=== PATIENT | male | born 1965 | race Caucasian/White ===

== ENCOUNTER 2016-12-18 05:36 | Day surgery (SDC) | payer OTHER ==
[2016-12-18 06:24] VITALS: PULSE 63
[2016-12-18] MEDS ORDERED: ceFAZolin 2 GM/DEXTROSE 100 ML IV ONE (06:35)
[2016-12-18] MEDS ORDERED: LR 1,000 ML IV ONE (06:37)
[2016-12-18] MEDS ORDERED: MIDAZOLAM 2 MG/2 ML VIAL IVP ONE (06:52)
--- NOTE | 2016-12-18 06:56 | PDANEPAE ---
ANE History of Present Illness ventral hernia s/p colosotomy and take down ANE Past Medical History - Cardiovascular History Hx Hypertension: Yes Hx Arrhythmias: No Hx Chest Pain: No Hx Coronary Artery / Peripheral Vascular Disease: No Hx CHF / Valvular Disease: No Hx Palpitations: No - Pulmonary History Hx COPD: No Hx Asthma/Reactive Airway Disease: Yes Hx Recent Upper Respiratory Infection: No Hx Oxygen in Use at Home: No Hx Sleep Apnea: No Sleep Apnea Screening Result - Last Documented: Positive Pulmonary History Comment: CHILDHOOD ASTHMA - Neurologic History Hx Cerebrovascular Accident: No Hx Seizures: No Hx Dementia: No - Endocrine History Hx Diabetes: No Endocrine History Comment: BLOOD SUGARS RUN HIGH RESULT OF HIV RX. 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 INTERMITTENT HEARTBURN WILL USE OCCASIONAL RX - Other Health History Other Health History: HIV POSITIVE - DX . very stable on meds - Chronic Pain History Chronic Pain: No - Surgical History Prior Surgeries: SIGMOID RESECTION/COLOSTOMY 06/2015. ORIF RT 2011 ANE Review of Systems Review of Systems: - Exercise capacity METS (RN): 4 METS ANE Patient History - Allergies Allergies/Adverse Reactions: HAYFEVER Allergy (Mild, Uncoded 07/11/15 12:34) STUFFY NOSE - Home Medications Home medications: home medication list seen and reviewed Home Medications: Albuterol Sulfate [PROVENTIL HFA] 1 - 2 puffs IH DAILY PRN 07/11/15 [Last Taken 07/10/15] Cholecalciferol Vit D3 [Vitamin D3 2000 units] 4,000 units PO DAILY 07/11/15 [ Last Taken 07/07/15] Efavirenz/Emtricitab/Tenofovir [Atripla Tablet] 1 each PO HS 07/11/15 [Last Taken 12/17/16 20:30] Lisinopril [Zestril 20 mg (*)] 20 mg PO DAILY 07/11/15 [Last Taken 12/17/16 20: 30] Multivitamins [Multivitamin (*)] 1 each PO DAILY 07/11/15 [Last Taken 12/15/16] Pravastatin Sodium 20 mg PO DAILY 07/11/15 [Last Taken 12/17/16] Tetrahydrozoline HCl/Zn Sulf [Visine Allergy Relief Drop] 1 drop OP DAILY PRN [Last Taken Unknown] - NPO status NPO Since - Liquids (Date): 12/17/16 NPO Since - Liquids (Time): 21:30 NPO Since - Solids (Date): 12/17/16 NPO Since - Solids (Time): 18:00 - Anes Hx Anes Hx: no prior problems - Smoking Hx Smoking Status: Current some day smoker - Alcohol Use Alcohol Use: Occasionally - Family Anes Hx Family Hx Anesthesia Complications: NEG ANE Labs/Vital Signs - Labs - CBC WBC: all labs reviewed and okay. LFT's stable - Vital Signs Blood Pressure: 124/83 Heart Rate: 63 Respiratory Rate: 16 O2 Sat (%): 94 Height: 186.69 cm Weight: 99.79 kg ANE Physical Exam - Airway Neck exam: FROM Mallampati Score: Class 2 Mouth exam: normal dental/mouth exam - Pulmonary Pulmonary: no respiratory distress - Cardiovascular Cardiovascular: regular rate and rhythym - ASA Status ASA Status: II (previous ez intubation) ANE Anesthesia Plan Anesthesia Plan: general endotracheal anesthesia (R/B/A explained and pt. agrees to proceed.)
[2016-12-18] MEDS ORDERED: BUPIVACAINE 0.5% 30 ML SDV ONE (07:04)
--- NOTE | 2016-12-18 07:05 | PDGENHP ---
History & Physical Chief Complaint: screening colon History of Present Illness: h/o diverticulitis with fistula requirng resection Pertinent Past, Social, Family History: no fam h/o colon cancer or polyps Relevant Physical Exam: CV rrr s1s2 nl. chect cta. abd + bs soft Cardiorespiratory Assessment: 11
--- NOTE | 2016-12-18 07:15 | PDHPUP ---
History & Physical Update H&P update statement: This history and physical update is based on an assessment of the patient which was completed after admission or registration (within 24 hours), but prior to the surgery/procedure. H&P update: H&P reviewed & patient examined, no change in patient's condition since H&P completed
[2016-12-18] MEDS ORDERED: fentaNYL 100 MCG/2 ML INJ ONE ×2 (07:18→09:05)
[2016-12-18] MEDS ORDERED: ROCURONIUM 50 MG/5 ML VIAL ONE ×2 (07:19→08:07)
[2016-12-18] MEDS ORDERED: DEXAMETHASONE 4 MG/ML VIAL ONE ×2 (07:19)
[2016-12-18] MEDS ORDERED: LIDOCAINE 2% 100 MG/5 ML SYR ONE (07:19)
[2016-12-18] MEDS ORDERED: ONDANSETRON 4 MG/2 ML VIAL ONE (07:19)
[2016-12-18] MEDS ORDERED: PROPOFOL/EMULSION 500 MG/50 ML BOTTLE IV ONE (07:19)
[2016-12-18] MEDS ORDERED: LIDOCAINE HCL 160 MG/4 ML LTA KIT TP ONE (07:20)
--- NOTE | 2016-12-18 08:10 | GIREPORT ---
[facility] Surgical Services - Endoscopy Department Patient Name: Edward Fry Procedure Date: 12/18/2016 7:29 AM Patient Type: Outpatient Attending MD/ ER Physician: Janae Rodriguez MD Procedure: Colonoscopy Indications: Screening for colorectal malignant neoplasm, coloncsopy do in coordinat ion with ventral hernia repair while patient is under genral anesthesia. (Incidentally pt has h/o complex diverticulitis with fistula requiring surgery 2015) Providers: Janae Rodriguez MD Medicines: General Anesthesia Complications: No immediate complications. Description of Procedure: After obtaining informed consent, the scope was passed under direct vision. Throughout the proce dure, the patient's blood pressure, pulse, and oxygen saturations were monitored continuously. The Colonoscope with irrigation channel was introduced through the anus and advanced to the cecum, identified by appendiceal orifice and ileocecal valve. The colonoscopy was performed without difficulty. The patient tolerated the procedure well. The quality of the bowel preparation was p oor. The ileocecal valve, appendiceal orifice, and rectum were photographed. Findings: The perianal and digital rectal examinations were normal. Multiple diverticula were found in the entire colon. There was evidence of a prior end-to-side colo-colonic anastomosis in the sigmoid colon. This wa s patent and was characterized by friable mucosa and inflammation. The anastomosis was traversed. Biopsies were taken with a cold forceps for histology. Estimated blood loss was minimal. A 14 mm polyp was found in the cecum. The polyp was sessile. The polyp was removed with a piecem eal technique using a cold snare. Resection and retrieval were complete. Estimated blood loss was mi nimal. Three sessile polyps were found in the ascending colon. The polyps were 4 to 10 mm in size. Thes e polyps were removed with a cold snare. Resection and retrieval were complete. Estimated blood lo ss was minimal. Estimated Blood Loss: Estimated blood loss was minimal. Post Op Diagnosis: - Preparation of the colon was poor. - Diverticulosis in the entire examined colon. - Patent end-to-side colo-colonic anastomosis, characterized by friable mucosa and inflammation. Biopsied. - One 14 mm polyp in the cecum, removed piecemeal using a cold snare. Resected and retrieved. - Three 4 to 10 mm polyps in the ascending colon, removed with a cold snare. Resected and retrie tiana. Recommendation: - Await pathology results. - Repeat colonoscopy in 1 year for surveillance after piecemeal polypectomy and poor prep. - Recommedn split prep wiuth 1 bottle of mag citrate with next colon. - Return patient to have hernia repair and disposition per Dr. Gaffney. Attending Participation: I personally performed the entire procedure. Janae Rodriguez MD Janae Rodriguez MD 12/18/2016 8:09:45 AM Number of Addenda: 0 Note Initiated On: 12/18/2016 7:29 AM Total Procedure Duration Time 0 hours 17 minutes 28 seconds [email or web address]
[2016-12-18] MEDS ORDERED: DEXAMETHASONE 4 MG/ML VIAL IVP PRN (08:32)
[2016-12-18] MEDS ORDERED: LABETALOL HCL 50 MG/10 ML SYR IVP PRN (08:32)
[2016-12-18] MEDS ORDERED: ACETAMINOPHEN 500 MG TAB PO PRN (08:32)
[2016-12-18] MEDS ORDERED: PROMETHAZINE HCL 25 MG/ML INJ IVP PRN (08:32)
[2016-12-18] MEDS ORDERED: NALOXONE HCL 0.4 MG/ML INJ IVP PRN (08:32)
[2016-12-18] MEDS ORDERED: LR 500 ML IV PRN (08:32)
[2016-12-18] MEDS ORDERED: METOCLOPRAMIDE 10 MG/2 ML VIAL IVP PRN (08:32)
[2016-12-18] MEDS ORDERED: HYDROCODONE/APAP 5/325 TAB PO PRN (08:32)
[2016-12-18] MEDS ORDERED: ALBUTEROL 3 ML DEYVIAL IH PRN (08:32)
[2016-12-18] MEDS ORDERED: MEPERIDINE 25 MG/ML SYR IVP PRN (08:32)
[2016-12-18] MEDS ORDERED: ONDANSETRON 4 MG/2 ML VIAL IVP PRN (08:32)
[2016-12-18] MEDS ORDERED: OXYCODONE/APAP 5/325 TAB PO PRN (08:32)
[2016-12-18] MEDS ORDERED: SUGAMMADEX SODIUM 200 MG/2 ML VIAL IVP ONE (08:49)
--- NOTE | 2016-12-18 08:54 | POSTOPPROG ---
Post Op Note Date of Operation: 12/18/16 Surgeon: Arianna Gaffney Elderly Companion: Isatu Anesthesiologist: José Miguel Anesthesia: GET(General Endotracheal) Pre-op Diagnosis: ventral hernia Post-op Diagnosis: same Indication: 51 year old with ventral hernia at ostomy take down site Procedure: open ventral hernia with mesh Findings: 4x4cm hernia Inf/Abcess present in the surg proc area at time of surgery?: No EBL: Minimal Specimen(s): none
[2016-12-18] MEDS: fentaNYL 100 MCG/2 ML INJ IVP PRN ×2 (09:10→09:15)
--- NOTE | 2016-12-18 09:28 | GOP ---
[f rep st] OPERATIVE REPORT DATE OF OPERATION: 12/18/2016 SURGEON: Arianna Gaffney MD RD LAB TECHNICIAN: Jessica Lunsford, JANNETH ANESTHESIA: General. ANESTHESIOLOGIST: Joshua Valdez MD PREOPERATIVE DIAGNOSIS: Ventral hernia. POSTOPERATIVE DIAGNOSIS: Ventral hernia. PROCEDURE PERFORMED: Open ventral hernia repair with mesh. FINDINGS: 4 x 4 cm hernia. SPECIMENS: None. ESTIMATED BLOOD LOSS: 10 cc. INDICATIONS: Edward Fry is a 51-year-old man status post colostomy takedown. He developed a hernia at the colostomy takedown site. DESCRIPTION OF PROCEDURE: The patient was brought into the operating room, and general anesthesia was administered. He first had a colonoscopy with Dr. Rodriguez. When this was completed, he was placed supine on the operative table. His abdomen was prepped and draped in the usual sterile fashion. I made an ellipse around his old ostomy scar. I dissected carefully down, as I knew there was very little tissue between the skin and the fascia. I identified a breach, and I opened this up fully to expose the fascial layer. It measured approximately 4 x 4 cm. I selected a piece of composite mesh, placed this intraabdominal, and sutured it in place with 0 Surgilon. The mesh was 9 x 9 cm. I then closed the fascia with 0 PDS. I closed the deep layer of tissue with 2-0 Vicryl. Skin was closed with 3-0 Vicryl followed by 4-0 Monocryl. Mastisol, Steri-Strips, and sterile dressing were applied. He was awakened in the operating room, extubated, and transferred to PACU in stable condition. /[id number]/MODL MTDD
--- NOTE | 2016-12-18 09:46 | POSTANESTH ---
Post Anesthetic Evaluation Cardiovascular Status: Normal, Stable Respiratory Status: Normal, Stable Level of Consciousness/Mental Status: Can Participate in Eval Pain Control: Adequate, Prn Tx Ordered Nausea/Vomiting Control: Adequate, Prn Tx Ordered Complications Possibly Related to Anesthesia: None Noted
[2016-12-18 09:47] VITALS: BP 119/81; RESP 13
[2016-12-18 09:55] VITALS: TEMP 97.5
[2016-12-18 09:56] VITALS: O2SAT 94
== END 2016-12-18 10:50 | disposition home or self-care (01) ==
LOC: FSGY 05:36
PROVIDERS: ATTEND Surgery
PROC: 0WUF0JZ Supplement Abdominal Wall with Synthetic Substitute, Open Approach (ICD-10-PCS; principal; 2016-12-18 07:15)
PROC: 0DBH8ZX Excision of Cecum, Via Natural or Artificial Opening Endoscopic, Diagnostic (ICD-10-PCS; principal; 2016-12-18 07:15)
PROC: 0DBK8ZX Excision of Ascending Colon, Via Natural or Artificial Opening Endoscopic, Diagnostic (ICD-10-PCS; principal; 2016-12-18 07:15)
PROC: 0DBN8ZX Excision of Sigmoid Colon, Via Natural or Artificial Opening Endoscopic, Diagnostic (ICD-10-PCS; principal; 2016-12-18 07:15)
DX: K43.9 Ventral hernia without obstruction or gangrene (principal); D12.0 Benign neoplasm of cecum; D12.2 Benign neoplasm of ascending colon; I10 Essential (primary) hypertension; J45.909 Unspecified asthma, uncomplicated
CPT/HCPCS: C1781; J0690; J1100; J2001; J2250; J2405; J2704; J3010

== ENCOUNTER → 2017-02-17 | Outpatient (CLI) | payer OTHER | LOC: FIMAGING 07:28 | PROVIDERS: ATTEND Nurse Practitioner | DX: K43.9 Ventral hernia without obstruction or gangrene (principal); N28.1 Cyst of kidney, acquired; K80.20 Calculus of gallbladder without cholecystitis without obstruction; R16.0 Hepatomegaly, not elsewhere classified; K76.0 Fatty (change of) liver, not elsewhere classified; R16.1 Splenomegaly, not elsewhere classified ==

== ENCOUNTER 2017-03-12 05:25 | Day surgery (SDC) | payer OTHER ==
--- NOTE | 2017-03-10 10:50 | GHP ---
[f rep st] PREOP HISTORY AND PHYSICAL DATE OF ADMISSION: 03/12/2017 CHIEF COMPLAINT: Right inguinal and ventral hernia. HISTORY OF PRESENT ILLNESS: The patient is a 51-year-old man who had a colovesical fistula. He had takedown of Karin's with anastomosis on December 20, 2015. I then performed an incisional ventra l hernia repair at the site of the ostomy takedown November 2016. Some point after that, he develop ed a bulge in his right groin and also tearing and discomfort in the right abdomen and showing a george ia by the midline. He presents to discuss repair. PAST MEDICAL HISTORY: Asthma, diabetes type 2, HIV, hypertension, hyperlipidemia. PAST SURGICAL HISTORY: As above. An open reduction internal fixation of the right 4th metacarpal. ALLERGIES: No known drug allergies. FAMILY MEDICAL HISTORY: Significant for breast cancer in his mother, alcoholism in his father, along with a stroke and hypertension, pacemaker, and pancreatitis. SOCIAL HISTORY: He drinks approximately 5 drinks per week. He does use tobacco products. 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 REVIEW OF SYSTEMS: 10-point review of systems negative. PHYSICAL EXAMINATION: GENERAL: Pleasant, well-nourished, well-groomed man. HEENT: Normocephalic. No gross hearing deficits. Mucous membranes moist. Pupils equal and round. No scleral icterus. L UNGS: Clear to auscultation bilaterally. No increased work of breathing. CARDIAC: Regular rate. No peripheral edema. ABDOMEN: Bowel sounds are present. He has no hernia on the left side. He peraza s have a right inguinal hernia and a ventral hernia on the right lower abdomen. SKIN: Warm and dry. MUSCULOSKELETAL: Normal gait, normal nails. PSYCH: Mood and affect normal. NEURO: Grossly inta ct. IMPRESSION AND PLAN: 51-year-old man with right inguinal hernia and incisional hernia. Due to his w ork requirements and having 2 hernias, I would like to attempt a robotic repair of both of these george ias. He also understands there may be a possibility he would need an open repair. The risks and brando efits, including, but not limited to, stroke, heart attack, , blood clots, infection, bleeding w ere discussed. He understands that he will be under lifting restrictions postoperatively. /[id number]/MODL
[2017-03-12] MEDS ORDERED: ceFAZolin 2 GM/SWFI 2 GM/20 ML SYR IVP ONE (05:48)
[2017-03-12] MEDS ORDERED: LIDOCAINE 1% 2 ML INJ ID PRN (05:48)
[2017-03-12] MEDS ORDERED: LR 1,000 ML IV ONE (05:48)
[2017-03-12 06:08] VITALS: PULSE 72
[2017-03-12] MEDS ORDERED: MIDAZOLAM 2 MG/2 ML VIAL IVP ONE (06:56)
--- NOTE | 2017-03-12 07:00 | PDANEPAE ---
ANE History of Present Illness DaVinci assist ventral hernia repair ANE Past Medical History - Cardiovascular History Hx Hypertension: Yes Hx Arrhythmias: No Hx Chest Pain: No Hx Coronary Artery / Peripheral Vascular Disease: No Hx CHF / Valvular Disease: No Hx Palpitations: No - Pulmonary History Hx COPD: No Hx Asthma/Reactive Airway Disease: Yes Hx Recent Upper Respiratory Infection: No Hx Oxygen in Use at Home: No Hx Sleep Apnea: No Sleep Apnea Screening Result - Last Documented: Positive Pulmonary History Comment: CHILDHOOD ASTHMA. ALLERGIC TRIGGERS - Neurologic History Hx Cerebrovascular Accident: No Hx Seizures: No Hx Dementia: No - Endocrine History Hx Diabetes: No Endocrine History Comment: BLOOD SUGARS RUN HIGH RESULT OF HIV RX. CHECK OWN OCCASIONALLY HAVE BEEN OK. 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 INTERMITTENT HEARTBURN WILL USE OCCASIONAL RX - Other Health History Other Health History: HIV POSITIVE - DX . very stable on meds - Chronic Pain History Chronic Pain: No - Surgical History Prior Surgeries: HERNIA REPAIR. TAKEDOWN. SIGMOID RESECTION/COLOSTOMY 06/2015. ORIF RT 2011 ANE Review of Systems Review of systems is: negative Review of Systems: - Exercise capacity Exercise capacity: >=4 METS METS (RN): 4 METS ANE Patient History - Allergies Allergies/Adverse Reactions: HAYFEVER Allergy (Mild, Uncoded 07/11/15 12:34) STUFFY NOSE - Home Medications Home medications: home medication list seen and reviewed Home Medications: Albuterol Sulfate [PROVENTIL HFA] 1 - 2 puffs IH DAILY PRN 07/11/15 [Last Taken 08/18/16] Cholecalciferol Vit D3 [Vitamin D3 2000 units] 4,000 units PO DAILY 07/11/15 [ Last Taken 03/08/17] Efavirenz/Emtricitab/Tenofovir [Atripla Tablet] 1 each PO HS 07/11/15 [Last Taken 03/11/17] Lisinopril [Zestril 20 mg (*)] 20 mg PO DAILY 07/11/15 [Last Taken 03/11/17] Multivitamins [Multivitamin (*)] 1 each PO DAILY 07/11/15 [Last Taken 03/08/17] Pravastatin Sodium 20 mg PO DAILY 07/11/15 [Last Taken 03/11/17] Tetrahydrozoline HCl/Zn Sulf [Visine Allergy Relief Drop] 1 drop OP DAILY PRN [Last Taken 03/12/17 03:00] traMADol 5 mg DAILY PRN 03/12/17 [Last Taken 03/11/17] - NPO status NPO Status: no food or drink >8 hours NPO Since - Solids (Date): 03/11/17 NPO Since - Solids (Time): 19:30 - Anes Hx Anes Hx: no prior problems - Smoking Hx Smoking Status: Current some day smoker - Family Anes Hx Family Anes Hx: none Family Hx Anesthesia Complications: NEG ANE Labs/Vital Signs - Vital Signs Blood Pressure: 120/84 Heart Rate: 72 Respiratory Rate: 16 O2 Sat (%): 92 Height: 186.69 cm Weight: 99.79 kg ANE Physical Exam - Airway Neck exam: FROM Mallampati Score: Class 3 Mouth exam: normal dental/mouth exam - Pulmonary Pulmonary: no respiratory distress - Cardiovascular Cardiovascular: regular rate and rhythym - ASA Status ASA Status: II ANE Anesthesia Plan Anesthesia Plan: general endotracheal anesthesia
[2017-03-12] MEDS ORDERED: DEXAMETHASONE 4 MG/ML VIAL ONE (07:09)
[2017-03-12] MEDS ORDERED: LIDOCAINE 2% 100 MG/5 ML SYR ONE (07:09)
[2017-03-12] MEDS ORDERED: ROCURONIUM 50 MG/5 ML VIAL ONE ×3 (07:09→09:20)
[2017-03-12] MEDS ORDERED: ONDANSETRON 4 MG/2 ML VIAL ONE (07:09)
[2017-03-12] MEDS ORDERED: SUGAMMADEX SODIUM 200 MG/2 ML VIAL IVP ONE (07:09)
[2017-03-12] MEDS ORDERED: fentaNYL 250 MCG/5 ML INJ ONE (07:10)
[2017-03-12] MEDS ORDERED: PROPOFOL 200 MG/20 ML VIAL ONE (07:10)
[2017-03-12] MEDS ORDERED: BUPIVACAINE 0.5% 30 ML SDV ONE (07:19)
[2017-03-12] MEDS ORDERED: PHENYLEPHRINE HCL 100 MCG/ML SYR ONE (07:48)
[2017-03-12] MEDS ORDERED: ONDANSETRON 4 MG/2 ML VIAL IVP PRN (09:19)
[2017-03-12] MEDS ORDERED: MEPERIDINE 25 MG/ML SYR IVP PRN (09:19)
[2017-03-12] MEDS ORDERED: NALOXONE HCL 0.4 MG/ML INJ IVP PRN (09:19)
[2017-03-12] MEDS ORDERED: OXYCODONE/APAP 5/325 TAB PO PRN (09:19)
[2017-03-12] MEDS ORDERED: HYDROmorphONE/DILAUDID 1 MG/ML INJ IVP PRN (09:19)
[2017-03-12] MEDS ORDERED: PROMETHAZINE HCL 25 MG/ML INJ IVP PRN (09:19)
[2017-03-12] MEDS ORDERED: ACETAMINOPHEN 500 MG TAB PO PRN (09:19)
[2017-03-12] MEDS ORDERED: DEXAMETHASONE 4 MG/ML VIAL IVP PRN (09:19)
[2017-03-12] MEDS ORDERED: fentaNYL 100 MCG/2 ML INJ IVP PRN (09:19)
[2017-03-12] MEDS ORDERED: ALBUTEROL 3 ML DEYVIAL IH PRN (09:19)
[2017-03-12] MEDS ORDERED: LABETALOL HCL 5 MG/ML 20 ML MDV IVP PRN (09:19)
--- NOTE | 2017-03-12 09:22 | POSTANESTH ---
Post Anesthetic Evaluation Cardiovascular Status: Normal, Stable, Similar to Pre-Op Cond Respiratory Status: Normal, Stable, Similar to Pre-op Cond. Level of Consciousness/Mental Status: Can Participate in Eval, Mildly Sleepy, Arousable Pain Control: Adequate, Prn Tx Ordered Nausea/Vomiting Control: Adequate, Prn Tx Ordered Complications Possibly Related to Anesthesia: None Noted
[2017-03-12] MEDS ORDERED: KETOROLAC 30 MG/1 ML SDV ONE (09:49)
--- NOTE | 2017-03-12 10:01 | POSTOPPROG ---
Post Op Note Date of Operation: 03/12/17 Surgeon: Arianna Gaffney Metal Inspector: avani Anesthesiologist: sharmaine Anesthesia: GET(General Endotracheal) Pre-op Diagnosis: R inguinal hernia, R ventral hernia Post-op Diagnosis: same Indication: 51yo M with multiple symptomatic hernias Procedure: da teresa RIH repair, open ventral hernia repair Findings: multiple hernias Inf/Abcess present in the surg proc area at time of surgery?: No EBL: Minimal
[2017-03-12 10:51] VITALS: O2SAT 91
[2017-03-12 11:34] VITALS: BP 108/62; RESP 15
[2017-03-12 11:36] VITALS: TEMP 97.5
== END 2017-03-12 11:55 | disposition home or self-care (01) ==
LOC: FSGY 05:25
PROVIDERS: ATTEND Surgery
PROC: 0WUF0JZ Supplement Abdominal Wall with Synthetic Substitute, Open Approach (ICD-10-PCS; principal; 2017-03-12 07:15)
PROC: 0YU54JZ Supplement Right Inguinal Region with Synthetic Substitute, Percutaneous Endoscopic Approach (ICD-10-PCS; principal; 2017-03-12 07:15)
PROC: 8E0W8CZ Robotic Assisted Procedure of Trunk Region, Via Natural or Artificial Opening Endoscopic (ICD-10-PCS; principal; 2017-03-12 07:15)
DX: K40.90 Unilateral inguinal hernia, without obstruction or gangrene, not specified as recurrent (principal); K43.9 Ventral hernia without obstruction or gangrene; J45.909 Unspecified asthma, uncomplicated; E11.9 Type 2 diabetes mellitus without complications; I10 Essential (primary) hypertension; E78.5 Hyperlipidemia, unspecified; Z90.49 Acquired absence of other specified parts of digestive tract; Z21 Asymptomatic human immunodeficiency virus [HIV] infection status
CPT/HCPCS: C1781; J0690; J1100; J1885; J2001; J2250; J2370; J2405; J2704; J3010